=== PATIENT | male | born 1995 | race Caucasian/White ===

== ENCOUNTER → 2018-04-28 | Outpatient (CLI) | payer SELFPAY ==
--- NOTE | 2018-04-28 17:07 | US ---
EXAMINATION TYPE: US scrotum with doppler. Grayscale and color Doppler Duplex imaging performed of t he scrotum. DATE OF EXAM: 04/28/2018 COMPARISON: NONE CLINICAL HISTORY: N50.9 Testicular abnormality. EXAM MEASUREMENTS: TESTICLES: Right Testicle: 4.6 x 1.9 x 2.7 cm Left Testicle: 4.7 x 2.1 x 2.6 cm EPIDIDYMIS HEAD: Right Epididymis: 1.2 cm Left Epididymis: 1.0 cm Doppler performed to assess for testicular vascularity; good bilateral color flow and waveforms are s een. There is no evidence of testicular torsion. Presence of hydroceles: no Presence of varicoceles: no IMPRESSION: 1. No acute testicular abnormality
== END | disposition home or self-care (01) ==
LOC: RADUSWWP 14:35
PROVIDERS: ATTEND Internal Medicine
DX: N50.9 Disorder of male genital organs, unspecified (principal)
CPT/HCPCS: 76870; 93975

== ENCOUNTER → 2024-02-29 | Outpatient (CLI) | payer OTHER ==
--- NOTE | 2024-02-29 11:53 | CA ---
Exercise Stress Test Report Name: Crystal Majano Exam Date: 02/29/2024 09:04 Exam Location: [facility] Ht (in): 65 Wt (lb): 180 BSA: 1.89 Ordering Phys: Chas Seymour MD Referring Phys: CHAS SEYMOUR Technologist: Abiodun Grover Age: 28 Gender: M : 1995 Procedure CPT: Indications: R06.02 SOB R07.9 CHEST PAIN ICD-10 Codes: Patient History: Medications: ADDERALL Meds past 24 hrs: Pretest Chest Pain: STRESS TEST Joshua Protocol Exercise Duration (min:sec): 13:[address] Depressions (mm): 0 Angina Score: Vizcarra Score: Resting HR (bpm): 102 Peak HR (bpm): 197 Resting BP (mmHg): 129 / 86 Peak BP (mmHg): 181 / 63 MPHR: 190 Target HR: 162 % MPHR: 104 METS: 13.9 Total Dose: Peak Dose: Atropine: Double Product: 56712 BP Response: Stress Termination: TARGET HR REACHED/MAX EXERTION Stress Symptoms: CHEST TIGHTNESS Stress Summary: The patient's target heart rate was achieved ECG ANALYSIS Resting ECG: Sinus rhythm. Normal conduction. No arrhythmias. Normal repolarization. Stress ECG: No ECG evidence of ischemia with exercise. CONCLUSIONS 1. Good exercise tolerance 2. Chest discomfort at peak exercise of unclear etiology 3. Normal electrocardiographic response to exercise with no evidence of exercise induced ischemia Dr. Sivakumar Nesbitt MD (Electronically Signed) Final Date: 29 February 2024 11:52
== END | disposition home or self-care (01) ==
LOC: RADNMMAIN 08:43
PROVIDERS: ATTEND Family Medicine
DX: R06.02 Shortness of breath (principal); R07.89 Other chest pain
CPT/HCPCS: 93017